=== PATIENT | female | born 1960 | race Caucasian/White ===

== ENCOUNTER 2016-07-29 23:33 | Emergency (ER) | payer MEDICAID ==
[~2016-07-29] VITALS: Ht 170.2 cm; Wt 50.0 kg
[2016-07-30] MEDS ORDERED: LEVETIRACETAM 500MG PREMIX 100 ML IV ONE (02:00)
[2016-07-30 05:34] VITALS: BP 115/71
== END 2016-07-30 05:36 | disposition home or self-care (01) ==
LOC: ER 23:34
DX: R56.9 Unspecified convulsions (principal)
CPT/HCPCS: 96365; 99284; J1953

== ENCOUNTER 2022-10-17 08:45 | Emergency (ER) | payer BC, MEDICAID ==
[~2022-10-17] VITALS: Ht 165.1 cm; Wt 52.0 kg
[~2022-10-17 08:45] MED LIST: KEPPRA 750 MG PO
[2022-10-17 08:51] VITALS: O2SAT 100
[2022-10-17 09:58] LABS: BASOPHILS % 0.4 % (0.0-2.0); EOSINOPHILS % 0.3 % (0.0-5.0); HEMATOCRIT. 41.2 % (36.0-48.0); HEMOGLOBIN. 13.7 g/dL (12.0-16.0); LYMPHOCYTES % 8.5 % (20.0-50.0); MEAN CORPUSCULAR HEMOGLOBIN 29.2 pg (28.0-32.0); MEAN CORPUSCULAR HGB CONC 33.2 g/dL (31.0-37.0); MONOCYTES % 6.8 % (2.0-8.0); PLATELET 267 x1000/uL (130-400); RED BLOOD CELL COUNT 4.69 mill/uL (4.2-5.4); RED CELL DISTRIBUTION WIDTH 13.7 % (11.6-14.6); WHITE BLOOD COUNT 10.9 x1000/uL (4.5-11.0)
[2022-10-17 10:07] LABS: CALCIUM 8.1 mg/dL (8.5-10.1); CHLORIDE 114 mEq/L (98-107); INDEX HEMOLYSI 1 (1-3); INDEX ICTERIC 1 (1-4); INDEX LIPEMIC 1 (1-3); POTASSIUM 3.7 mEq/L (3.5-5.1); SODIUM 142 mEq/L (136-145)
[2022-10-17 10:14] LABS: ALANINE AMINOTRANSFERASE 25 IU/L (13-61); ALBUMIN 3.3 g/dL (3.4-5.0); ASPARTATE AMINOTRANSFERASE 23 IU/L (15-37); BILIRUBIN TOTAL 0.2 mg/dL (0.1-1.0); CARBON DIOXIDE 24 mEq/L (21-32); CREATININE 0.7 mg/dL (0.6-1.3); GLUCOSE 95 mg/dL (70-105); UREA NITROGEN BLOOD 7 mg/dL (7-21)
[2022-10-17] MEDS ORDERED: LEVETIRACETAM 500MG TABLET PO ONE (10:30)
[2022-10-17] MEDS ORDERED: LIDOCAINE HCL 1% 20ML VIAL (Pyxis) INJ INFIL ONE (11:15)
[2022-10-17 13:44] VITALS: BP 108/77; PULSE 91; RESP 18; TEMP 98.4
[2022-10-17] MEDS ORDERED: KETOROLAC 60MG/2ML VIAL IM ONE (13:45)
== END 2022-10-17 14:16 | disposition home or self-care (01) ==
LOC: ER 09:22
DX: S01.01XA Laceration without foreign body of scalp, initial encounter (principal); I49.9 Cardiac arrhythmia, unspecified; Z91.148 Patient's other noncompliance with medication regimen for other reason; Z98.890 Other specified postprocedural states; Z86.59 Personal history of other mental and behavioral disorders; X58.XXXA Exposure to other specified factors, initial encounter; Y93.89 Activity, other specified; Y92.89 Other specified places as the place of occurrence of the external cause; Y99.8 Other external cause status
CPT/HCPCS: 99284; 80053; 85025; 36415; 12002; 96372; 93005; J1885; J3490

== ENCOUNTER 2022-10-25 15:10 | Emergency (ER) | payer BC, MEDICAID ==
[~2022-10-25] VITALS: Ht 165.1 cm; Wt 58.0 kg
[2022-10-25 15:16] VITALS: BP 109/72; PULSE 85; RESP 20; TEMP 98.4; O2SAT 97
[2022-10-25] MEDS ORDERED: IBUP-2029 MT (17:02)
== END 2022-10-25 18:06 | disposition home or self-care (01) ==
LOC: ER 15:10
DX: S01.01XD Laceration without foreign body of scalp, subsequent encounter (principal); Z90.710 Acquired absence of both cervix and uterus; X58.XXXD Exposure to other specified factors, subsequent encounter
CPT/HCPCS: 99281; 99282